=== PATIENT | female | born 1960 | race Caucasian/White ===

== ENCOUNTER 2016-10-26 16:23 | Emergency (ER) | payer OTHER ==
[~2016-10-26] VITALS: Ht 162.6 cm; Wt 73.3 kg
[2016-10-26] MEDS ORDERED: DIAZEPAM 5 MG TABLET ONE (17:51)
[2016-10-26] MEDS ORDERED: DIAZEPAM 5 MG TABLET PO ONE (18:00)
[2016-10-26] MEDS ORDERED: MELO7.5T31 PO (18:02)
[2016-10-26 18:03] LABS: HEMATOCRIT 42.8 % (34.6-47.8); HEMOGLOBIN 14.6 g/dL (11.7-16.4); WHITE BLOOD COUNT 9.3 x10^3/uL (3.4-10)
[2016-10-26 18:15] LABS: BLOOD UREA NITROGEN 19 mg/dL (7-18)
[2016-10-26 18:20] LABS: IS PT STATUS REG ER OR PRE ER? YES
[2016-10-26 19:30] VITALS: BP 139/56
== END 2016-10-26 19:32 | disposition home or self-care (01) ==
LOC: ED 17:25
DX: M54.6 Pain in thoracic spine (principal); M62.830 Muscle spasm of back
CPT/HCPCS: 36415; 71010; 80048; 82040; 84484; 85025; 93005; 99285

== ENCOUNTER → 2016-12-05 | Outpatient (CLI) | payer OTHER ==
[~2016-12-05] MED LIST: MELO7.5T31 PO
== END | disposition home or self-care (01) ==
LOC: CFH 15:41
PROVIDERS: ATTEND Physical Medicine & Rehabilitation
DX: M47.896 Other spondylosis, lumbar region (principal); M51.27 Other intervertebral disc displacement, lumbosacral region; M51.36 Other intervertebral disc degeneration, lumbar region
CPT/HCPCS: 72148

== ENCOUNTER → 2019-02-18 | Outpatient (CLI) | payer OTHER | END | disposition home or self-care (01) | LOC: CFH 14:42 | PROVIDERS: ATTEND Nurse Practitioner Family | DX: Z12.31 Encounter for screening mammogram for malignant neoplasm of breast (principal) | CPT/HCPCS: 77063; 77067 ==